=== PATIENT | female | born 1970 | race Caucasian/White ===

== ENCOUNTER 2017-05-08 05:25 | Day surgery (SDC) | payer BC, OTHER ==
[2017-05-03 15:40] VITALS: BMI 23.8
[2017-05-08] MEDS ORDERED: MIDAZOLAM HCL 2 MG/2 ML SINGLE DOSE VIAL ONE (07:57)
[2017-05-08] MEDS ORDERED: DESFLURANE GAS 240 ML BOTTLE IH ONE (07:59)
[2017-05-08] MEDS ORDERED: DEXAMETHASONE SOD PHOSPHATE 4 MG/1 ML VIAL ONE ×2 (08:14→09:03)
[2017-05-08] MEDS ORDERED: LIDOCAINE HCL/PF 2% SDV 5ML VIAL ONE (08:16)
[2017-05-08] MEDS ORDERED: PROPOFOL 20 ML ONE (08:17)
--- NOTE | 2017-05-08 09:18 | HP ---
Past Medical History - Primary Care Physician PCP:: Neal Jewell - Admission Chief Complaint: metrorrhagia History of Present Illness: 47 yo f with past hx of EM ablation c/o vaginal spotting and bleeding almost every day for past 3 month with cramps., no heavy bleeding, no clots , sono submucos myoma admitted for hysteroscopy resection of submucos myoma, rba discussed History Source: Patient Limitations to Obtaining History: No Limitations - Past Surgical History Hx Myomectomy: No Hx Transabdominal Cerclage: No Additional Surgical History: endometrial ablation - Smoking History Smoking history: Current some day smoker Have you smoked in the past 12 months: Yes Aproximately how many cigarettes per day: 3 - Alcohol/Substance Use Hx Alcohol Use: Yes (SOCIAL) - Social History History of Recent Travel: No Home Medications - Allergies Allergies/Adverse Reactions: Allergies Allergy/AdvReac Type Severity Reaction Status Date / Time No Known Drug Allergies Allergy Verified 02/22/15 14:25 - Home Medications Home Medications: Ambulatory Orders NK [No Known Home Medication] 05/03/17 Review of Systems - Review of Systems Constitutional: reports: No Symptoms Eyes: reports: No Symptoms HENT: reports: No Symptoms Neck: reports: No Symptoms Cardiovascular: reports: No Symptoms Respiratory: reports: No Symptoms Gastrointestinal: reports: No Symptoms Genitourinary: reports: Vaginal Bleeding Breasts: reports: No Symptoms Reported Musculoskeletal: reports: No Symptoms Integumentary: reports: No Symptoms Neurological: reports: No Symptoms Endocrine: reports: No Symptoms Hematology/Lymphatic: reports: No Symptoms Psychiatric: reports: No Symptoms Physical Exam-ACETYLENE BURNER Vital Signs: Vital Signs Temperature 98.1 F 05/08/17 07:32 Pulse Rate 70 05/08/17 07:32 Respiratory Rate 16 05/08/17 07:32 Blood Pressure 129/87 05/08/17 07:32 O2 Sat by Pulse Oximetry (%) 98 05/08/17 07:33 Constitutional: Yes: Well Nourished, No Distress, Calm Eyes: Yes: WNL, Conjunctiva Clear, EOM Intact HENT: Yes: WNL, Atraumatic, Normocephalic Neck: Yes: WNL, Supple, Trachea Midline Cardiovascular: Yes: WNL, Regular Rate and Rhythm Respiratory: Yes: WNL, Regular, CTA Bilaterally Gastrointestinal: Yes: WNL ...Rectal Exam: Yes: WNL Renal/: Yes: WNL Pelvis: Yes: WNL External Genitalia: Yes: Normal Internal Exam Deferred: No Vaginal Exam: Yes: Normal Cervix: Yes: Normal Uterus: Yes: Normal, Tender Breast(s): Yes: WNL Musculoskeletal: Yes: WNL Extremities: Yes: WNL Edema: No Integumentary: Yes: WNL Neurological: Yes: WNL, Alert, Oriented ...Motor Strength: WNL Psychiatric: Yes: WNL, Alert, Oriented Problem List - Problem (1) Metrorrhagia Code(s): N92.1 - EXCESSIVE AND FREQUENT MENSTRUATION WITH IRREGULAR CYCLE (2) Pelvic pain Code(s): R10.2 - PELVIC AND PERINEAL PAIN Assessment/Plan s/p EM ablation r/o EM adhesions with submucos myoma, plan hysteroscopy D&C resection of submucos myoma rba discussed with patient
[2017-05-08] MEDS ORDERED: ONDANSETRON 4 MG/2 ML VIAL IVPUSH PRN ×2 (09:21→09:24)
[2017-05-08] MEDS ORDERED: oxyCODONE HCL 5 MG TABLET PO PRN ×2 (09:21→09:24)
[2017-05-08] MEDS ORDERED: IBUPROFEN 600 MG TABLET (FP) PO PRN (09:24)
[2017-05-08] MEDS ORDERED: IBUPROFEN 800 MG/8 ML IJ IVPB PRN (09:24)
[2017-05-08] MEDS ORDERED: ELECTROLYTE-148 SOLN 1,000 ML IV SCH (09:30)
[2017-05-08] MEDS ORDERED: LACTATED RINGERS SOLUTION 1,000 ML IV SCH (09:30)
[2017-05-08] MEDS ORDERED: KETOROLAC TROMETHAMINE 30 MG/1 ML VIAL IVPUSH ONE (09:45)
[2017-05-08 11:28] VITALS: TEMP 98
[2017-05-08] MEDS ORDERED: IBUPROFEN 600 MG TABLET (FP) PO ONE ×2 (12:44→12:45)
[2017-05-08 13:29] VITALS: BP 117/78; PULSE 66
--- NOTE | 2017-05-09 15:41 | PATH ---
Surgical Pathology Report Patient Name: MICHAEL PARKER [facility]. Rec. #: [id number] /Age/Gender: 1970 (Age: 47) / F Account: [id number] Location: [facility] SURGICAL Taken: 05/08/2017 Received: 05/08/2017 Reported: 05/09/2017 Physicians: Neal Jewell M.D. Specimen(s) Received SUBMUCOSAL FIBROID AND ENDOMETRIAL CURETTINGS Clinical History Leiomyoma uterus submucosal, irregular menses Final Diagnosis SUBMUCOSAL FIBROID AND ENDOMETRIUM, CURETTAGE: FRAGMENTS OF LEIOMYOMA, SECRETORY ENDOMETRIUM AND SCANT BENIGN ENDOCERVICAL GLANDULAR TISSUE. Electronically Signed Kalpana Henson M.D. Gross Description Received in formalin labeled "submucosal fibroid and endometrial curettings," is a 2.3 x 2.2 x 0.3 cm aggregate of silver-red soft tissue fragments admixed with blood clot. The formalin is filtered and the specimen is entirely submitted in one cassette. 05/08/2017 [facility]05/08/2017
--- NOTE | 2017-05-30 11:52 | OP ---
DATE OF OPERATION: 05/08/2017 PREOPERATIVE DIAGNOSIS: Menometrorrhagia, submucous myoma, rule out endometrial polyp. POSTOPERATIVE DIAGNOSIS: Menometrorrhagia, submucous myoma, rule out endometrial polyp. PROCEDURE: Hysteroscopy, resection of 2 submucous myomas with a TRUCLEAR device, and dilatation and curettage. SURGEON: Neal Jewell MD ANESTHESIA: General. ESTIMATED BLOOD LOSS: 100 mL. OPERATIVE PROCEDURE: The patient was taken to the operating room, and under adequate general anesthesia in dorsal lithotomy position, abdomen and perineum and vagina were prepped and draped. Examination under anesthesia revealed external genitalia to be normal. Vagina was normal. Cervix was clean, no lesion. Uterus was normal-sized, retroverted. Adnexa, no masses were felt. Then, with a weighted speculum in the vagina, anterior lip of the cervix was grasped with a single-tooth tenaculum, and cervix was slightly dilated. Uterine cavity was sounded to 7 cm. Then, TRUCLEAR 5C hysteroscope set was introduced. Visualization of the endocervical canal appeared to be normal. Uterine cavity had 2 submucous myomas, 1 anterior at the mid body of the uterus approximately 3 cm, and then, there was a smaller submucous myoma posteriorly at the mid body of the uterus. Both cornua region was identified. Then, tubal ostia were visualized. Endometrium appeared to be slightly irregular at the fundal area. No other abnormalities were seen. Then, with the TRUCLEAR resectoscope at speed of 2000 RPM, the 2 myomas were resected, and the contents were suctioned. Total resection time was 2 minutes and 17 seconds. Total volume was 3770, with a fluid deficit of 300. Then, after uterine cavity was lavaged, hysteroscope was reintroduced, and no bleeding was seen at the site of resection. Both submucous myomas were resected to the myometrium. Patient tolerated the procedure well, left the OR in good condition. NEAL JEWELL M.D. [id number]
== END 2017-05-08 13:00 | disposition home or self-care (01) ==
LOC: JASU-SURG 05:25
PROVIDERS: ATTEND Obstetrics & Gynecology
PROC: 0UDB8ZX Extraction of Endometrium, Via Natural or Artificial Opening Endoscopic, Diagnostic (ICD-10-PCS; 2017-05-08)
PROC: 0UB98ZZ Excision of Uterus, Via Natural or Artificial Opening Endoscopic (ICD-10-PCS; principal; 2017-05-08 08:00)
DX: N92.1 Excessive and frequent menstruation with irregular cycle (principal); D25.0 Submucous leiomyoma of uterus
CPT/HCPCS: 84703; 88305-TC; 94760